=== PATIENT | male | born 1950 | race Caucasian/White ===

== ENCOUNTER 2023-07-03 10:07 | Emergency (ER) | payer MEDICARE, SELFPAY ==
--- NOTE | ~2023-07-03 | XR_ITS ---
XR foot LT min 3V DATE: 07/03/2023 10:57 INDICATION: Proximal left foot bruising and swelling. No known injury. TECHNIQUE: 4 views COMPARISON: None FINDINGS: Mild osteoarthritis at the tibiotalar and first metatarsophalangeal joints. There is prominent posterior calcaneal enthesopathy and mild plantar calcaneal enthesopathy. No fracture, dislocation, periosteal reaction or bone destruction. 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 GN ENGINEER
[2023-07-03 10:23] VITALS: BP 127/77; PULSE 115; RESP 16; TEMP 37.6; O2SAT 98
--- NOTE | 2023-07-03 10:45 | ED.EXTPRO ---
HPI - Extremity Problem General Chief complaint: Extremity Problem,Nontraumatic Stated complaint: Left Foot Pain Time Seen by Provider: 07/03/23 10:35 Source: patient and RN notes reviewed Mode of arrival: ambulatory Limitations: no limitations History of Present Illness HPI Narrative: Patient presents today complaining of pain to the dorsum of his left foot x4-5 days. Denies injury or trauma. Denies pain at rest, but this increases significantly with weight-bearing. Denies numbness or tingling. Denies treatment prior to arrival. Related Data Home Medications Medication Instructions Recorded Confirmed meclizine 25 mg tablet 25 mg PO PRN VERTIGO 07/03/23 07/03/23 paroxetine HCl 40 mg tablet 40 mg PO DAILY 07/03/23 07/03/23 Allergies Allergy/AdvReac Type Severity Reaction Status Date / Time No Known Allergies Allergy Verified 07/03/23 10:26 Review of Systems Review of Systems: CONSTITUTIONAL: Denies body aches, fever, chills, or sweats. EYES: Denies visual changes, redness, or discharge. ENT: Denies rhinorrhea, congestion, sore throat, or otalgia. CARDIOVASCULAR: Denies chest pain, palpitations, or edema. RESPIRATORY: Denies cough or dyspnea. GASTROINTESTINAL: Denies abdominal pain, nausea, vomiting, or diarrhea. GENITOURINARY: Denies dysuria or hematuria. SKIN: Denies rash, itching, or wounds. MUSCULOSKELETAL: + left foot pain NEUROLOGIC: Denies headache, numbness, tingling, or weakness. PSYCH: Denies depression or anxiety. PMFSH Comments At time of signature, I have reviewed and agree with nursing past medical, surgical, social and family history unless otherwise noted. Please see nursing chart for further information. There is no relevant family history pertinent to the presenting complaint Exam Narrative: GENERAL: Well-appearing, well-nourished, and in no acute distress. HEAD: Normocephalic, atraumatic. EYES: EOMI. No redness or drainage. Conjunctivae normal. ENT: Mucous membranes pink and moist. NECK: Normal AROM. CHEST: No respiratory distress. EXTREMITIES: Left foot: Large area of ecchymosis to the proximal dorsum. Proximal foot is moderately swollen compared to the other foot. Distal foot and toes are not edematous. Ankle is not edematous or tender. Capillary refill normal. Pedal pulse normal. Full range of motion of toes and ankle without pain. SKIN: Warm, dry, no rash. Capillary refill normal. Normal skin turgor. NEURO: No focal deficits. Alert and oriented x3. Gait steady. PSYCH: Normal affect. No signs of depression or anxiety. Course Course Level of Care: Express Care Visit Vital Signs Vital signs: Vital Signs Temperature 99.6 F 07/03/23 10:23 Pulse Rate 115 H 07/03/23 10:23 Respiratory Rate 16 07/03/23 10:23 Blood Pressure 127/77 07/03/23 10:23 Pulse Oximetry 98 07/03/23 10:23 Oxygen Delivery Room Air 07/03/23 10:23 Temperature 99.6 F 07/03/23 10:23 Pulse Rate 115 H 07/03/23 10:23 Respiratory Rate 16 07/03/23 10:23 Blood Pressure 127/77 07/03/23 10:23 Pulse Oximetry 98 07/03/23 10:23 Oxygen Delivery Room Air 07/03/23 10:23 Reviewed MDM - Extremity (Nontraumatic) MDM Narrative Medical decision making narrative: X-ray is negative for acute fracture. Instructed patient to ice the foot and rested. He is requesting a prescription for ibuprofen. This is sent to the pharmacy. Instructed to follow-up with PCP or podiatry if symptoms do not improve. Anticipatory guidance given. 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
== END 2023-07-03 11:25 | disposition home or self-care (01) ==
PROVIDERS: Emergency Provider Nurse Practitioner
DX: S90.32XA Contusion of left foot, initial encounter (principal); X58.XXXA Exposure to other specified factors, initial encounter; E78.00 Pure hypercholesterolemia, unspecified; I10 Essential (primary) hypertension; K21.9 Gastro-esophageal reflux disease without esophagitis; F32.A Depression, unspecified
CPT/HCPCS: 73630; 99213; G0463

== ENCOUNTER 2024-04-16 11:04 | Outpatient (CLI) | payer MEDICARE, SELFPAY ==
[2024-04-16 14:50] LABS: Alanine Aminotransferase 19 U/L (6-50); Albumin Level 4.4 g/dL (3.5-5.1); Alkaline Phosphatase 63 U/L (38-126); Anion Gap 6 mmol/L (4-12); Aspartate Amino Transferase 43 U/L (17-59); Bilirubin,Total 1.6 mg/dL (0.2-1.3); Blood Urea Nitrogen 21 mg/dL (9-20); Calcium 9.7 mg/dL (8.4-10.2); Carbon Dioxide 33 mmol/L (22-30); Chloride 100 mmol/L (98-107); Cholesterol 205 mg/dL (0-200); Estimated Glomerular Filt Rate > 60; Glucose 82 mg/dL (65-110); HDL Direct 44 mg/dL; Potassium 5.1 mmol/L (3.4-5.0); Sodium 139 mmol/L (137-145); Triglycerides 152 mg/dL (<150)
[2024-04-16 15:00] LABS: LDL Cholesterol Direct 124 mg/dL
[2024-04-16 15:11] LABS: Basophils Percent Auto 0.6 % (0.2-1.2); Eosinophils Absolute Auto 0.1 K/mm3 (0-0.3); Eosinophils Percent Auto 1.8 % (0-4.4); Hematocrit 55.1 % (42.0-52.0); Hemoglobin 18.2 g/dL (14.0-18.0); Immature Granulocyte Absolute 0.04 K/mm3 (0.00-0.031); Immature Granulocyte Percent A 0.6 % (0-0.5); Lymphocytes Absolute Auto 1.45 K/mm3 (0.9-3.2); Lymphocytes Percent Auto 20.6 % (18.3-44.2); Mean Corpuscular Hemoglobin 30.5 pg (26-34); Mean Corpuscular Volume 92.4 fl (80-100); Mean Platelet Volume 11.1 fl (7.4-10.4); Monocytes Absolute Auto 0.7 K/mm3 (0.1-0.6); Monocytes Percent Auto 9.5 % (2.6-8.5); Neutrophils Absolute Auto 4.7 K/mm3 (1.3-6.7); Neutrophils Percent Auto 66.9 % (45.5-73.1); Platelet Count Result 166 k/mm3 (150-375); Red Blood Count 5.96 M/mm3 (4.6-6.20); Red Cell Distribution Width 12.5 % (11.5-14.5)
[2024-04-16 15:23] LABS: Prostate Specific Antigen 3.8 ng/mL (< OR = 4.0)
== END 2024-04-16 11:05 | disposition home or self-care (01) ==
LOC: ANHGOSHLAB 11:06
PROVIDERS: PCP Internal Medicine; Visit Provider Internal Medicine
DX: E78.01 Familial hypercholesterolemia (principal); F43.21 Adjustment disorder with depressed mood; N40.0 Benign prostatic hyperplasia without lower urinary tract symptoms; I10 Essential (primary) hypertension; Z13.29 Encounter for screening for other suspected endocrine disorder; Z13.0 Encounter for screening for diseases of the blood and blood-forming organs and certain disorders involving the immune mechanism; Z13.228 Encounter for screening for other metabolic disorders; Z12.5 Encounter for screening for malignant neoplasm of prostate
CPT/HCPCS: 36415; 80053; 80061; 82172; 84153; 85025; G0103

== ENCOUNTER 2025-04-28 14:39 | Outpatient (CLI) | payer MEDICARE, SELFPAY ==
--- OUTSIDE RECORDS SUMMARY | 2025-04-28 17:24 | XMS_ITS ---
Author Organization [facility] [address] [facility] Address [address] [place] [address] Care Team Providers [employer] Name Role Phone Moose Bradley DO Primary Care Provider [phone] Active Problems Problem Noted Date Diagnosed Date Allergic conjunctivitis of both eyes 09/06/2023 Assessment & Plan (09/06/2023 9:46 AM CDT): Rec OTC Pataday or Lastacaft Dry eye syndrome of both lacrimal glands 024 Assessment & Plan (09/06/2023 9:46 AM CDT): Pfats BID+ Essential hypertension 04/11/2023 Moderate episode of recurrent major depressive d isorder 04/11/2023 Overview (04/11/2023): Continue paxil. Refer to counseling Vertigo 04/11/2023 Presbyopia 07/15/2022 Assessment & Plan (09/06/2023 9:44 AM CDT): Cont with readers PRN Assessment & Plan (07/15/2022 5:12 PM COMPUTER SYSTEMS ANALYST): rec OTC readers PRN Cellulitis of left lower extremity 06/22/2022 Overview (06/22/2022): small amount redness, will treat with keflex Low back pain 06/22/2022 Overview (06/22/2022): check xray lumbar Mid back pain on left side 06/22/2022 Overview (06/22/2022): xray of back Constipation 06/22/2022 Overview (06/22/2022): miralax BID until pt has BM, encourage increase water intake. Prunes, new medication education given. Type 2 diabetes mellitus wit hout complication, without long-term current use of insulin 05/17/2021 Assessment & Plan (07/15/2022 5:12 PM COMPUTER SYSTEMS ANALYST): Pt ed. Stressed BG control (HbA1C<7) to reduce the risk for diabetic ocular complications. 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 Denies history of trauma right eye (OD). Pt ed. Signs/sx retinal detachment (RD) reviewed. 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 04/08/2019 Overview (04/08/2019): Added automatically from request for surgery [id number] Personal history of colonic polyps 06/18/2018 Overview (06/18/2018): Added automatically from request for surgery [id number] High risk for colon cancer 06/18/2018 Overview (06/18/2018): Added automatically from request for surgery [id number] Infectious warts 01/06/2017 Hemangioma of skin 08/15/2016 Neoplasm of skin of face 08/15/2016 Seborrheic keratoses 08/15/2016 Dribbling of urine 02/01/2016 Disorder of vein 01/11/2016 Varicose veins of lower extremity 01/11/2016 Fracture of metacarpal bone 12/29/2015 Pain of lower extremity 10/28/2015 History of basal cell carcinoma (BCC) 09/17/2013 Knuckle pads 09/17/2013 Adenoma of colon 11/19/2012 Benign neoplasm of skin 09/11/2012 Elevated prostate specific antigen (PSA) 012 Combined forms of age-related cataract of both e yes 07/25/2011 Assessment & Plan (09/06/2023 9:43 AM CDT): Pt visually functioning adequately. Defer cataract extraction (CE) until s/sx indicate. Rec UV eye protection Assessment & Plan (07/15/2022 5:12 PM COMPUTER SYSTEMS ANALYST): right eye (OD)>OS, pt wants to monitor at this time Assessment & Plan (07/13/2021 1:46 PM COMPUTER SYSTEMS ANALYST): Defer cataract surgery until signs and symptoms indicate. Pt was educated on the diagnosis. Assessment & Plan (07/09/2019 11:56 AM COMPUTER SYSTEMS ANALYST): Pt ed. Monitor at this time. Stressed UV protection. Current Treatment and Therapy Plans No current plan information found. Past Treatment and Therapy Plans No past plan information found. Lifetime Dose Tracking * Chemical Lifetime Dose Automatic Entry Manual Entr y DLP 3,112 mGycm 3,112 mGycm 0 mGycm Resolved Problems Problem Noted Date Diagnosed Date Resolved Date Optic nerve cupping, suspicious, left 07/09/2019 09/06/2023 Assessment & Plan (07/09/2019 12:24 PM COMPUTER SYSTEMS ANALYST): Cupping appears more asymmetric clinically than per OCT. Normal IOPs. Normal RNFL and GCC thickness both eyes (OU). 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 Follow. Refraction disorder 07/09/2019 07/15/19 23 Assessment & Plan (07/13/2021 1:45 PM COMPUTER SYSTEMS ANALYST): Release of dated glasses prescription Assessment & Plan (07/09/2019 12:25 PM COMPUTER SYSTEMS ANALYST): Release updated glasses Rx
--- OUTSIDE RECORDS SUMMARY | 2025-04-28 17:24 | XMS_ITS | Clinical Summary ---
Author Organization [place] [address] [address] [facility] Address [address] [place] [address] Care Team Providers Care Licensed Practical Nurse Clinic Nurse Name Role Phone Moose Bradley DO Primary Care Provider [phone] Allergies Active Allergy Reactions Criticality Noted Date Comments House Dust House Dust Mite Sneezing Low 06/22/2022 Medications ibuprofen (ADVIL,MOTRIN) 600 mg tablet Take 1 tablet (600 mg total) by mouth every 6 (six) hours as needed 1 9 Active vacuum erection device system kit Use as directed for erectile dysfunction 1 kit 1 Active atorvastatin (LIPITOR) 10 mg tablet TAKE 1 TABLET BY MOUTH EVERY DAY 90 tablet 3 2 Active lidocaine (LIDODERM) 5 % Place 1 patch on the skin daily for 15 days Remove & discard patch within 12 hours or as directed by . 15 patch 2 Active propranolol LA (INDERAL LA) 80 mg 24 hr capsule TAKE 1 CAPSULE BY MOUTH EVERY DAY 90 capsule [address] (NexIUM) 40 mg capsuleIndicatio ns:Gastroesophag eal reflux disease without esophagitis TAKE 1 CAPSULE BY MOUTH EVERY DAY 90 capsule 3 Active tadalafiL (CIALIS) 20 mg tablet TAKE 1 TABLET BY MOUTH EVERY DAY NEEDED FOR ERECTILE DYSFUNCTION 6 tablet 5 3 Active aspirin 81 mg enteric coated tablet Take 1 tablet (81 mg total) by mouth daily Active meclizine (ANTIVERT) 25 mg tablet Take 1 tablet (25 mg total) by mouth 3 (three) times a day as needed for dizziness 30 tablet 3 3 Active valsartan (DIOVAN) 160 mg tablet Take 1 tablet (160 mg total) by mouth daily 90 tablet 3 3 Active PARoxetine (PAXIL) 40 mg tablet TAKE 1 TABLET BY MOUTH EVERY DAY IN THE MORNING 90 tablet 4 Active ipratropium (ATROVENT) 21 mcg (0.03 %) nasal spray ADMINISTER 1 SPRAY INTO EACH NOSTRIL 3 (THREE) TIMES A DAY 90 mL 4 Active Active Problems Problem Noted Date Diagnosed Date [...] PRN Assessment & Plan (07/15/2022 5:12 PM LABOR EXPEDITER): rec OTC readers PRN Cellulitis of left [...] 05/17/2021 Assessment & Plan (07/15/2022 5:12 PM LABOR EXPEDITER): Pt ed. 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 Denies history of trauma right eye (OD). Pt ed. Signs/sx retinal detachment (RD) reviewed. 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 04/08/2019 Overview (04/08/2019): Added automatically from request for surgery [id number] Personal history of colonic polyps 06/18/2018 Overview (06/18/2018): Added automatically from request for surgery [id number] High risk for colon cancer 06/18/2018 Overview (06/18/2018): Added automatically from request for surgery [id number] Infectious warts 01/06/2017 Hemangioma of skin 08/15/2016 [...] protection Assessment & Plan (07/15/2022 5:12 PM LABOR EXPEDITER): right eye (OD)>OS, pt wants to monitor at this time Assessment & Plan (07/13/2021 1:46 PM LABOR EXPEDITER): Defer cataract surgery until signs and symptoms indicate. Pt was educated on the diagnosis. Assessment & Plan (07/09/2019 11:56 AM LABOR EXPEDITER): Pt ed. Monitor at this time. Stressed UV protection. Resolved Problems Problem Noted Date Diagnosed Date Resolved Date Optic nerve cupping, suspicious, left 07/09/2019 09/06/2023 Assessment & Plan (07/09/2019 12:24 PM LABOR EXPEDITER): Cupping appears more asymmetric clinically than per OCT. Normal IOPs. Normal RNFL and GCC thickness both eyes (OU). 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 Follow. Refraction disorder 07/09/2019 07/15/19 23 Assessment & Plan (07/13/2021 1:45 PM LABOR EXPEDITER): Release of dated glasses prescription Assessment & Plan (07/09/2019 12:25 PM LABOR EXPEDITER): Release updated glasses Rx Immunizations Immunization Administration Dates Next Due Tdap 08/30/2018 ZOSTER Recombinant 07/01/2020 Surgical History Surgery Date Site/Laterality Comments COLONOSCOPY HERNIA REPAIR SHOULDER SURGERY Left rotator cuff repair Medical History Medical History Date Comments Personal history of other di seases of the circulatory system History of hypertension - (A dded by TW Conv) GERD (gastroesophageal reflux disease) Hypertension Hyperlipidemia Allergic rhinitis Skin cancer left nose Colon polyp Family History Medical History Relation Name Comments Prostate cancer Brother Prostate can cer - (Added by TW Conv) Hypertension Father Prostate cancer Father Prostate can cer - (Added by TW Conv) Hypertension Mother Macular degeneration Mother Amblyopia Neg Hx Blindness Neg Hx Diabetes Neg Hx Glaucoma Neg Hx Relation Name Status Comments Brother Father Mother Social History Tobacco Use Types Packs/Day Years Used Date Smoking Tobacco: Never Smokeless Tobacco: Never Tobacco Cessation:Counseling Given: Not Answered Alcohol Use Standard Drinks/Week Comments Not Currently 0 (1 standard drink = 0.6 oz pur e alcohol) rarely AUDIT-C Answer Date Recorded Q1: How often do you have a drink containing alc ohol? Never 05/16/2024 Average Number of Drinks Not on file 024 Frequency of Binge Drinking Not on file 05/05 Personal Safety Answer Date Recorded Have you ever been in or are you currently in a harmful physical or emotional relationship or is someone making you feel afraid or unsafe? Denies 05/16/2024 Sex and Gender Information Value Date Recorded Sex Assigned at Not on file Legal Sex Male 7:59 PM LABOR EXPEDITER Gender Identity Not on file Sexual Orientation Not on file Last Filed Vital Signs Vital Sign Reading Time Taken Comments Blood Pressure 146/91 05/16/2024 3:41 PM LABOR EXPEDITER Pulse 75 05/16/2024 3:41 PM LABOR EXPEDITER Temperature 36.4 C (97.5 F) 05/16/2024 3:11 PM LABOR EXPEDITER Respiratory Rate 13 05/16/2024 3:41 PM LABOR EXPEDITER Oxygen Saturation 97% 05/16/2024 3:41 PM LABOR EXPEDITER Inhaled Oxygen Concentration - - Weight 90.7 kg (200 lb) 05/16/2024 1:40 PM LABOR EXPEDITER Height 182.9 cm (6') 05/16/2024 1:40 PM LABOR EXPEDITER Body Mass Index 27.12 05/16/2024 1:40 PM LABOR EXPEDITER Plan of Treatment Health Maintenance Due Date Last Done Comments Albumin Creatinine Ratio, Urine 1950 Depression Screening 1950 Hepatitis C Screening 1950 Foot Exam 1950 Hepatitis B Screening 1966 Pneumococcal vaccine 65+ (1 of 2 - PCV) 09/27/1967 Zoster Vaccine (2 of 2) 08/26/2020 07/01/2020 Well Visit 65+ 06/29/2021 06/29/2020 Hemoglobin A1C 11/15/2021 05/17/2021 eGFR 03/19/2024 03/19/2023, 10/04, 06/22/2022, Additional history exists Lipid Panel 04/11/2024 04/11/2023, 11/03, 05/17/2021, Additional history exists Dilated Eye Exam 09/05/2024 09/06/2023, 03/2023, 07/13/2021, Additional history exists Covid-19 Vaccine (3 - 2024-2 6 season) 2025 11/01/2020, 10/05/2020 Fall Risk Assessment 05/16/2025 05/16/2024 DTaP/Tdap/Td Vaccine (2 - Td or Tdap) 08/30/2028 08/30/2018 Prostate Cancer Screening-PSA Discontinued , 06/29/2020, 11/13/2018, Additional history exists Colon Cancer Screening-CT Colonography Discontinued 05/16/2024, 08/20/2018, 01/07/2013 Colon Cancer Screening-Colonoscopy Discontinued 05/16/2024, 08/20/2018, 01/07/2013 Colon Cancer Screening-DNA Stool Discontinued 05/16/2024, 08/20/2018, 01/07/2013 Colon Cancer Screening-FIT Discontinued 05/16, 08/20/2018, 01/07/2013 Colon Cancer Screening-FOBT Discontinued 05/05, 08/20/2018, 01/07/2013 Colon Cancer Screening-Sigmoidoscopy Discontinued 05/16/2024, 08/20/2018, 01/07/2013 Colorectal Cancer Screening Discontinued Influenza Vaccine Completed 03/11/2025, 01/15/2024 Procedures Procedure Name Priority Date/Time Associated Diagnosis Comments COLONOSCOPY 05/16/2024 2:46 PM LABOR EXPEDITER POCT LIPID PANEL Routine 04/11/2023 1:00 PM LABOR EXPEDITER Mixed hyperlipidemia EGFR STAT 03/19/2023 4:13 PM CDT POCT HEMOGLOBIN A1C Routine 05/17/2021 1 1:43 AM LABOR EXPEDITER Glucose intolerance PSA SCREEN Routine 03/05/2021 11:41 AM CDT Mixed hyperlipidemia from Last 3 Months or Most Recently Relevant to Health Maintenance Results * Colonoscopy (05/16/2024 2:46 PM LABOR EXPEDITER) Anatomical Region Laterality Modality Other Narrative Procedure Note Bharati Montes MD - 05/16/2024 2:46 PM [facility] Patient Name: Dhruv Fonseca Procedure Date: 05/16/2024 2:46 PM Date of : 1950 Admit Type: Outpatient Age: 73 Gender: Male Attending MD: Bharati Montes M.D. Room: [facility] ENDOSCOPY ROOM 9 Note Status: Finalized Procedure: Colonoscopy Indications: High risk colon cancer surveillance: Personalhistory of adenoma less than 10 mm in size, Lastcolonoscopy: August 2018 Referring MD: Moose Bradley D.O. Providers: Bharati Montes M.D. Medicines: Monitored Anesthesia Care Complications: No immediate complications. Estimated Blood Loss: Estimated blood loss: none. Procedure: Pre-Anesthesia Assessment: - Prior to the procedure, a History and Physicalwas performed, and patient medications and allergieswere reviewed. The patient's tolerance of previous anesthesia was also reviewed. The risks andbenefits of the procedure and the sedation options and risks were discussed with the patient. All questions were answered, and informed consent was obtained. Prior Anticoagulants: The patient has taken noanticoagulant or antiplatelet agents. ASA Grade Assessment: III -A patient with severe systemic disease. Afterreviewing the risks and benefits, the patient was deemed in satisfactory condition to undergo the procedure. - Immediately prior to administration ofmedications, the patient was re-assessed for adequacy to receive sedatives. - The risks and benefits of the procedure and the sedation options and risks were discussed with the patient. All questions were answered and informed consent was obtained. The benefits, risks and alternatives of theprocedure and sedation were discussed and informed consentwas obtained. All questions were answered. Please referto the signed informed consent document in the medical record. The scope was passed under direct vision.The CF [id number] endoscope was introduced through the anus and advanced to the cecum, identified by appendiceal orifice and ileocecal valve. The colonoscopy was performed without difficulty. The patient tolerated the procedure well. The qualityof the bowel preparation was evaluated using the BBPS ([place] Bowel Preparation Scale) with scores of:Right Colon = 3, Transverse Colon = 3 and Left Colon = 3 (entire mucosa seen well with no residual staining, small fragments of stool or opaque liquid). Thetotal BBPS score equals 9. The ileocecal valve,appendiceal orifice, and rectum were photographed. The bowel preparation used was GoLYTELY via split dose instruction. The quality of the bowel preparationwas excellent. Findings: The perianal and digital rectal examinations were normal. A 2 mm polyp was found in the ascending colon. The polyp was sessile. The polyp was removed with a jumbo cold forceps. Resection andretrieval were complete. A few small-mouthed diverticula were found in the sigmoid colon. External and internal hemorrhoids were found during retroflexion. The hemorrhoids were medium-sized. Impression: - One 2 mm polyp in the ascending colon, removedwith a jumbo cold forceps. Resected and retrieved. - Diverticulosis in the sigmoid colon. - External and internal hemorrhoids. Recommendation: - Patient has a contact number available for emergencies. The signs and symptoms of potential delayed complications were discussed with thepatient. Return to normal activities tomorrow. Written discharge instructions were provided to thepatient. - Discharge patient to home (with escort). - Resume previous diet. - Continue present medications. - Await pathology results. - Repeat colonoscopy in 5 years for surveillance. - In the unusual situation that you developabdominal pain, bleeding or other significant problems in the days following this procedure please call my officeat [phone] to speak to my nurse, Jahaira Melchor.After hours and evenings please call [phone] andspeak to the GI fellow cone operator. Please tell them that Dr. Montes did your procedure and that you wereinstructed to have the fellow call me or the physiciancovering for me to discuss the management of your condition.If you have an urgent problem, [facility] and have the ER doctor call myoffice during the day or the GI Fellow after hours and weekends to arrange admission or transfer to our facility. Electronically signed by Bharati Montes MD Bharati Montes M.D. 05/16/2024 3:17:21 PM Number of Addenda: 0 Note Initiated On: 05/16/2024 2:46 PM Bharati Montes MD ENDOSCOPY PROCEDURES Final Resu lt * POCT lipid panel (04/11/2023 1:00 PM LABOR EXPEDITER) Cholesterol, POC <100 mg/dL HDL, POC <15 mg/dL Triglycerides, POC 203 mg/dL LDL Cholesterol POC n/a mg/dL Chol/HDL Ratio, POC n/a Non-HDL Cholesterol, POC n/a mg/dL Capillary blood 04/11/2023 1 :00 PM LABOR EXPEDITER Michael Bobo MD POINT OF CARE TEST ORDER HEATHER Final Result * (ABNORMAL) eGFR (03/19/2023 4:13 PM CDT) eGFR 65(L) 90 - 130 mL/min/1. 73 m2 Comment: Interpretive Data Reference Interval Normal >/= 90 mL/min/1.73m2 Mildly decreased* 60 - 89 mL/min/1.73m2 Mildly to moderately decreased 45 - 59 mL/min/1.73m2 Moderately to severely decreased 30 - 44 mL/min/1.73m2 Severely decreased 15 - 29 mL/min/1.73m2 Kidney Failure < 15 mL/min/1.73m2 *Relative to young adult level Estimated glomerular filtration rate is determined by the 2020 CKD-EPI equation recommended by the National Kidney Foundation (A Unifying Approach to GFR Estimation: Recommendations of the NKF-ASK Task Force on Reassessing the Inclusion of Race in Diagnosing Kidney Disease, JASN 2020). The CKD-EPI equation should not be used for patients with unstable renal function and has not been validated in children and those over 70. Current interpretive data was last reviewed 2021. Blood 03/19/2023 4:13 PM CDT 03/19/2023 4:21 PM CDT us Tom Tejada MD LAB BLOOD ORDERABLES Final Result Performing Organization Address City/[facility] Co mt Phone Number [facility] Department [place] [address] * POCT hemoglobin A1c (05/17/2021 11:43 AM LABOR EXPEDITER) Hemoglobin A1C, POC 5.5 Blood specimen (specimen) 05/17/2021 11:43 AM LABOR EXPEDITER us Michael Bobo MD POINT OF CARE TEST ORDER HEATHER Final Result * PSA screen (03/05/2021 11:41 AM CDT) PSA 3.3 0.0 - 4.0 ng/mL [facility] - 01 Comment: Merle ECLIA methodology. According to the [place] [employer], Serum PSA should decrease and remain at undetectable levels after radical prostatectomy. The AUA defines biochemical recurrence as an initial PSA value 0.2 ng/mL or greater followed by a subsequent confirmatory PSA value 0.2 ng/mL or greater. Values obtained with different assay methods or kits cannot be used interchangeably. Results cannot be interpreted as absolute evidence of the presence or absence of malignant disease. Blood specimen (specimen) 03/05/2021 11:41 AM CDT 03/05/2021 Narrative [facility] - 03/06/2021 8:14 AM CDT Performed at: [facility] [id number] Park Guard: Jonny Casper PhD, Phone: [phone] us Ana Londono NP LAB BLOOD ORDERABLES Fin al Result Performing Organization Address City/[facility]/ZIP Co de Phone Number [facility] - 01 from Last 3 Months or Most Recently Relevant to Health Maintenance Insurance [facility] MEDICARE [facility] OPEN ACCESS [facility] MEDICARE ADVANTAGE Member Subscriber Plan / Payer ( fective 2023-Present) Name:Dhruv Fonseca Relation to Subscriber:Self Name:Dhruv Fonseca Payer ID:[id number] (NAIC) Type:[facility] MED[facility] Address: [place] [id number] [facility] MEDICARE ADVANTAGE Member Subscriber Plan / Payer ( fective 2023-Present) Name:Dhruv Fonseca Relation to Subscriber:Self Name:Dhruv Fonseca Payer ID:[id number] (NAIC) Type:[employer] MEDICARE Address: [place] [phone] Advance Directives For more information, please contact: [phone] * Full Code (Latest Code Status on File) Date Activated Date Inactivated Comments 05/16/2024 1:40 PM 05/16/2024 8:17 PM * Full Code Date Activated Date Inactivated Comments 08/20/2018 8:27 AM 08/20/2018 9:33 PM Care Teams Licensed Practical Nurse Clinic Nurse Relationship Specialty Start Date End Date Moose Bradley DO PCP - General Internal Medicine 08/14/23
--- OUTSIDE RECORDS SUMMARY | 2025-04-28 17:24 | XMS_ITS | Clinical Summary ---
Author Organization [facility] Address [address] [place] [id number] Care Team Providers Care Band Saw Filer Name Role Phone Unavailable Primary Care Provider Unavailabl e Social History Tobacco Use Types Packs/Day Years Used Date Smoking Tobacco: Never Assessed Sex and Gender Information Value Date Recorded Sex Assigned at Not on file Legal Sex Male 4:59 PM CDT Gender Identity Not on file Sexual Orientation Not on file Plan of Treatment Health Maintenance Due Date Last Done Comments Hepatitis C 1968 DTaP, Tdap and Td Vaccines ( 1 - Tdap) 09/27/1967 Pneumococcal Vaccine: 50+ Ye ars (1 of 1 - PCV) 1998 Zoster Vaccines (1 of 2) 1998 RSV Immunization or 60+ Years (1 - 1-dose 75+ series) 09/27/2023 COVID-19 Vaccine ( - 2024-2 6 season) 2025 Influenza Adult (#1) 2025 Hepatitis A Vaccines Aged Out No long er eligible based on patient's age to complete this topic Meningococcal B Vaccine Aged Out No l onger eligible based on patient's age to complete this topic Meningococcal Vaccine Aged Out No simon lenny eligible based on patient's age to complete this topic RSV Immunizations Under 20 Months Aged Out No longer eligible based on patient's age to complete this topic
[2025-04-28 18:41] LABS: Hematocrit 51.9 % (42.0-52.0); Hemoglobin 17.7 g/dL (14.0-18.0); Immature Granulocyte Percent A 0.3 % (0-0.5); Lymphocytes Absolute Auto 1.45 K/mm3 (0.9-3.2); Mean Corpuscular HGB Conc 34.1 g/dl (32-36); Mean Corpuscular Hemoglobin 31.2 pg (26-34); Mean Corpuscular Volume 91.4 fl (80-100); Nucleated Red Blood Cells Absolute Auto 0.000 K/mm3 (0.0-0.012); Nucleated Red Blood Cells Perc 0.0 % (0.0-0.2); Platelet Count Result 196 k/mm3 (150-375); Red Blood Count 5.68 M/mm3 (4.6-6.20); White Blood Count 7.0 K/mm3 (4.5-10.0)
[2025-04-28 18:53] LABS: Alanine Aminotransferase 30 U/L (6-50); Albumin Level 4.0 g/dL (3.5-5.1); Alkaline Phosphatase 72 U/L (38-126); Anion Gap 6 mmol/L (4-12); Aspartate Amino Transferase 34 U/L (17-59); Bilirubin,Total 1.1 mg/dL (0.2-1.3); Blood Urea Nitrogen 25 mg/dL (9-20); Calcium 9.5 mg/dL (8.4-10.2); Carbon Dioxide 31 mmol/L (22-30); Chloride 101 mmol/L (98-107); Cholesterol 172 mg/dL (0-200); Estimated Glomerular Filt Rate 54; Glucose 86 mg/dL (65-110); HDL Direct 35 mg/dL; Potassium 4.0 mmol/L (3.4-5.0); Sodium 138 mmol/L (137-145); Total Protein 7.0 g/dL (6.3-8.2); Triglycerides 200 mg/dL (<150)
[2025-04-28 19:28] LABS: Prostate Specific Antigen 3.6 ng/mL (< OR = 4.0)
== END 2025-04-28 14:40 | disposition home or self-care (01) ==
LOC: ANHGOSHLAB 14:42
PROVIDERS: PCP Internal Medicine; Visit Provider Internal Medicine
DX: Z12.5 Encounter for screening for malignant neoplasm of prostate (principal); I10 Essential (primary) hypertension; E78.019 Familial hypercholesterolemia, unspecified; Z13.228 Encounter for screening for other metabolic disorders; Z13.29 Encounter for screening for other suspected endocrine disorder; Z13.0 Encounter for screening for diseases of the blood and blood-forming organs and certain disorders involving the immune mechanism
CPT/HCPCS: 36415; 80053; 80061; 84153; 85025; G0103